=== PATIENT | female | born 1945 | race Caucasian/White ===

== ENCOUNTER 2017-03-01 13:31 | Observation (INO) | payer MEDICARE, BC ==
--- NOTE | ~2017-03-01 | CT4 ---
[facility] A Service of [facility] RADIOLOGY TEXT RESULTS PATIENT: CHAZ ROJAS LOCATION: [facility] 473-01 : 44 UNIT #: [id number] AGE: [address]: Ted Valle MD SEX: F ORDER DR: [id number] [facility] [address] [place], [place] [address] [id number] I MR#: [id number] Acc #: [id number] NAME: CHAZ ROJAS : 1945 SEX: F STUDY DATE/TIME: 03/01/2017 16:28 UNIT: [facility] ROOM: [facility] STUDY DESCRIPTION: CT Abd and Pelv Wo Cont Attending Physician: Donnell Forrest M.D. Ordering Physician: Kit Looney M.D. Primary Care Physician: Jolynn Gaspar Aprn MEDICAL IMAGING REPORT This report is preliminary unless electronic signature is present EXAM CT of the abdomen and pelvis without contrast media, dated 03/01. COMPARISON 02/19 HISTORY Left lower quadrant pain for 1 week. TECHNIQUE Axial imaging of the abdomen and pelvis was performed without contrast media: This CT exam was performed with one or more of the following radiation dose reduction techniques: automatic exposure control, adjustment of mA and/or kV according to patient size, and iterative reconstruction. FINDINGS Scans through the lung bases are normal. Scans through the liver parenchyma show no focal liver abnormalities. Gallbladder is normal. Spleen is unremarkable. The adrenal glands are normal and the pancreas is normal. Both the right and left kidney are normal. There are atherosclerotic calcifications in the aorta with very mild ectasia of abdominal aorta. There is extensive colonic diverticulosis. Appendix appears normal. There is soft tissue edema around the sigmoid colon consistent with sigmoid diverticulitis. No drainable fluid collection is identified. Uterus is to the left midline. There are no adnexal masses or fluid collections. Bony elements are remarkable for lumbar scoliosis and associated secondary degenerative changes. CONCLUSIONS 1. Sigmoid diverticulitis. CT of the abdomen and pelvis is otherwise unremarkable. [facility] A Service of [facility] RADIOLOGY TEXT RESULTS PATIENT: CHAZ ROJAS LOCATION: [facility] 473-01 : 44 UNIT #: [id number] AGE: [address]: Ted Valle MD SEX: F ORDER DR: Dictated by... Mello Bryan M.D. THIS IS AN ELECTRONICALLY VERIFIED REPORT Mello Bryan M.D. at 03/02/2017 10:22 AM ANDRA/josseline TD: 03/02/2017 00:42 JOB #: [id number] MEDICAL IMAGING REPORT Page 1 of 1 COPY
--- NOTE | ~2017-03-01 | DS ---
Unit #: [id number] #: [id number] Patient: CHAZ ROJAS [id number] [address] [address] [id number] I MR#: [id number] NAME: CHAZ ROJAS ROOM: 473 Age: 71 Sex: F Admission Date: 03/01/2017 : 1945 Discharge Date: 03/02/2017 Attending Physician: Ted Valle M.D. Primary Care Physician: Jolynn Gaspar Aprn DISCHARGE SUMMARY REASON FOR ADMISSION Right lower quadrant pain. HISTORY OF PRESENT ILLNESS/HOSPITAL COURSE The patient is a very pleasant 71-year-old female with underlying history of atrial fibrillation, heart failure, hypertension, who was seen at [facility] [place] [place] several days prior to this particular admission secondary to abdominal pain, was diagnosed with acute diverticulitis, given prescriptions for both Flagyl as well as Bactrim. She took both the medications as an outpatient. Unfortunately, her pain worsened in the right lower quadrant. Therefore, she presented to our hospital for further evaluation. Initial evaluation also yielded an elevated potassium level of 5.8, mildly decreased GFR of 41. She was subsequently admitted for the same. She underwent a CT abdomen and pelvis while here in the emergency room. It did reveal sigmoid diverticulitis. Through this particular hospital course, her white count did remain normal. Today at time of discharge, it is currently 8.6, hemoglobin 9.8. Repeat BMP this morning shows a potassium of 5.2 and a GFR of 50. Patient clinically is otherwise doing well. She has no fevers, no elevated white count. Therefore, she is clinically stable for discharge home. She will follow up with her primary care physician next week for a repeat BMP and CBC as well as routine hospital followup. In regard to diverticulitis, she was given appropriate dietary modifications at time of discharge. FINAL DISCHARGE DIAGNOSES 1. Acute diverticulitis. 2. Hyperkalemia. 3. Atrial fibrillation. 4. Prior history of heart failure, I believe diastolic dysfunction. 5. Hypertension. 6. Hyperlipidemia. 7. Chronic obstructive pulmonary disease. DISCHARGE MEDICATIONS Unit #: [id number] #: [id number] Patient: CHAZ ROJAS 1. Tylenol/Benadryl one tablet p.o. nightly p.r.n. 2. Eliquis 5 mg p.o. b.i.d. 3. Prozac 80 mg p.o. daily. 4. Metformin 500 mg p.o. daily. 5. Ativan 1 mg p.o. t.i.d. 6. Metoprolol XL 25 mg p.o. daily. 7. Colace 100 mg p.o. daily. 8. Bumex 1 mg p.o. b.i.d. 9. Vitamin E 400 units p.o. daily. 10. Pravastatin 40 mg p.o. daily. 11. Lisinopril 20 mg p.o. daily. 12. Aspirin 81 mg daily. 13. Omeprazole 20 mg p.o. b.i.d. 14. Cipro 500 mg p.o. b.i.d. x10 days. 15. Flagyl 500 mg p.o. q.8 x10 days. DISCHARGE CONDITION Stable. DISCHARGE DISPOSITION Home. FOLLOWUP Followup PCP within seven days. Dictated by... Yelena Hernandez/ora TD: 03/05/2017 10:32 JOB #: [id number] DISCHARGE SUMMARY Page 1 of 1 X Ted Valle MD X DISCHARGE SUMMARY
--- NOTE | ~2017-03-01 | HP ---
Unit #: [id number] #: [id number] Patient: CHAZ ROJAS [id number] [address] [address] [id number] I MR#: [id number] NAME: CHAZ ROJAS ROOM: 53944 Age: 71 Sex: F Admission Date: 03/01/2017 : 1945 Attending Physician: Donnell Forrest M.D. Primary Care Physician: Jolynn Gaspar Aprn HISTORY AND PHYSICAL CHIEF COMPLAINT Right lower quadrant pain. HISTORY OF PRESENT ILLNESS The patient is a very pleasant 71-year-old female with history of atrial fibrillation, CHF and hypertension, who was seen at [facility] approximately last Sunday with abdominal pain. The patient was diagnosed at that time with acute diverticulitis and provided antibiotics with Flagyl 500 mg q.8 h. as well as Bactrim Double Strength one tab b.i.d. Both were to go for 7 days. The patient stated that she finished both antibiotics and then her pain returned Sunday evening. The patient denies any nausea or vomiting. No fever. Does endorse and episode of chills this morning. States that the pain is mostly located in the right lower quadrant and has been persistent and radiates to her midline. She also noted some bright red blood per rectum with streaks in the toilet this morning but no clots. The patient denies any dizziness or lightheadedness. No chest pain, no shortness of breath. REVIEW OF SYSTEMS Ten out of 14 systems reviewed and negative unless noted above. PAST MEDICAL HISTORY Significant for: 1. Atrial fibrillation. 2. CHF. 3. Hypertension. 4. Hyperlipidemia. 5. COPD. PAST SURGICAL HISTORY Significant for: Right ovarian cyst removal. ALLERGIES No known drug allergies. MEDICATIONS Include: 1. Pravachol. 2. Eliquis. 3. Bumex. 4. Lisinopril. 5. Vitamin D2. 6. Aspirin 81 mg daily. Unit #: [id number] #: [id number] Patient: CHAZ ROJAS 7. Fish oil. 8. Fluoxetine 40 mg daily. 9. Potassium chloride 10 mEq daily. 10. Biotin. 11. Vitamin C. 12. Vitamin E. 13. Ativan 1 mg t.i.d. 14. Toprol XL 25 mg daily. 15. Iron supplement. As well as the completed antibiotics which were Flagyl and Bactrim. SOCIAL HISTORY The patient lives alone. Daughter, however, has accompanied her today. Smokes approximately 4-5 cigarettes per day and is trying to quit. Denies alcohol use. FAMILY HISTORY Noncontributory at this time. PHYSICAL EXAMINATION VITAL SIGNS: Temperature 98.2, heart rate 94, blood pressure 161/70, respiratory rate 20, saturating 97% on room air. GENERAL: The patient appears to be a well-nourished, well-developed, elderly female who is in no acute distress. HEENT: Pupils are equal and reactive to light and accommodation. Extraocular muscles are intact. Oropharynx clear. Mucous membranes appeared to be moist. Sclerae anicteric. NECK: Without lymphadenopathy. LUNGS: Clear to auscultation bilaterally. HEART: Regular rate with an irregular rhythm. No rubs, gallops, or murmurs appreciated. ABDOMEN: Obese. Positive bowel sounds. Soft, some slight tenderness to palpation in the right lower quadrant. No rebound or guarding however was noted. EXTREMITIES: No clubbing or cyanosis. Patient does have trace pedal edema bilaterally. NEUROLOGIC: Nonfocal. DIAGNOSTIC STUDIES LABORATORY: White count today of 10 down from 12.6 last week. Hemoglobin of 11 and platelets 369. Basic panel noted for potassium of 5.8, BUN 38, creatinine 1.3 with a glucose of 127. Comprehensive metabolic panel is within normal limits. Urinalysis was negative. Lipase 51, amylase 33. IMAGING: Repeat CT scan of the abdomen and pelvis today once again showed diverticulitis, reportedly no perforations were noted. ASSESSMENT AND PLAN 1. Diverticulitis. Patient on antibiotics without any improvement. Most likely was only partially treated given that she was placed on Bactrim versus Cipro or Levaquin. At this time, will resume patient's Flagyl and place on ciprofloxacin to treat for a total of 7 days ago. The patient is currently afebrile and her white count is otherwise normal and her symptoms resumed once the Flagyl had finished. 2. Hyperkalemia. Will hold patient's REINA inhibitor as well as her oral potassium supplement. The patient is on both lisinopril and Unit #: [id number] #: [id number] Patient: CHAZ ROJAS potassium supplement and is taking Bumex as well. Would recommend that she discontinue the extra potassium supplement upon discharge and just continue with the REINA inhibitor. I have ordered a repeat potassium for this evening and once again in the morning. Patient has been given insulin as well as one amp of D50 here in the ER. 3. Atrial fibrillation, currently rate controlled. Will continue Eliquis and Toprol XL at home dosages. 4. Hyperlipidemia. Continue statin. 5. Congestive heart failure, question type, unknown at this point. Patient does have an elevated BUN and creatinine. We will recheck this in the morning and hold dose of Bumex for now. 6. Hypertension. Continue home medications. 7. Tobacco abuse. Have ordered a nicotine patch per patient request and she has been counseled on cessation. 8. Chronic obstructive pulmonary disease. No evidence of acute exacerbation at this time, currently stable. CODE STATUS FULL CODE. DISPOSITION I expect disposition in under 48 hours. Patient should be able to go home in the morning pending that her potassium level has returned back to normal. Dictated by Yelena Rodriguez/lina TD: 03/01/2017 20:25 JOB #: [id number] HISTORY AND PHYSICAL Page 1 of 1 X X HISTORY AND PHYSICAL
[2017-03-01 14:28] LABS: BASOPHIL# 0.1 X10e3 (0-0.3); BASOPHIL% 1.4 % (0-2.5); EOSINOPHIL# 0.2 X10e3 (0-0.7); EOSINOPHIL% 2.3 % (0.0-7.0); LYMPHOCYTE# 2.7 X10e3 (1.0-3.5); LYMPHOCYTE% 27.4 % (17.0-45.0); MEAN CELL VOLUME 93.7 FL (83-96); MEAN CORPUSCULAR HEMOGLOBIN 30.3 PG (28-34); MEAN CORPUSCULAR HGB CONC 32.3 g/dL (30-36); MEAN PLATELET VOLUME 8.9 FL (6.5-11.5); MONOCYTE% 9.6 % (3.0-12.0); NEUTROPHIL# 5.9 X10e3 (1.5-7.1); NEUTROPHIL% 59.3 % (40-75); PLATELET COUNT 369 X10e3 (140-420); RED BLOOD COUNT 3.63 X10e (3.90-5.30); RED CELL DISTRIBUTION WIDTH 14.6 % (11.0-15.5)
[2017-03-01 14:37] LABS: DIFF IND NO
[2017-03-01 14:52] LABS: ALBUMIN SERUM 3.8 g/dL (3.5-5.0); BILIRUBIN, DIRECT 0.1 mg/dL (0.0-0.2); BILIRUBIN,INDIRECT 0.3 mg/dL (0.0-0.9); BILIRUBIN,TOTAL 0.4 mg/dL (0.2-2.0); BUN/CREATININE RATIO 29.23; CALCIUM SERUM 9.8 mg/dL (8.4-10.2); CREATININE SERUM 1.3 mg/dL (0.6-1.4); PROTEIN TOTAL SERUM 7.6 g/dL (6.0-8.3)
[2017-03-01 14:54] LABS: POTASSIUM 5.8 mmol/L (3.5-5.1)
[2017-03-01 16:54] LABS: URINE SOURCE CLEAN CATCH
[2017-03-01 17:02] LABS: URINE APPEARANCE CLEAR; URINE BILIRUBIN NEG (NEG); URINE BLOOD NEG (NEG); URINE COLOR YELLOW; URINE GLUCOSE NEG (NEG); URINE KETONE NEG (NEG); URINE LEUKOCYTE ESTERASE NEG (NEG); URINE NITRATE NEG (NEG); URINE PROTEIN NEG (NEG); URINE SPECIFIC GRAVITY 1.015 (1.003-1.035); URINE UROBILINOGEN 0.2 MG/DL (NEG)
[2017-03-01 17:16] LABS: CULTURE INDICATED? NO
[2017-03-01] MEDS ORDERED: PATIENT'S PHARMACY (18:00)
[2017-03-01] MEDS ORDERED: ELIQUIS5 MG PO (18:01)
[2017-03-01] MEDS ORDERED: PRAVASTATIN SOD40 MG PO (18:01)
[2017-03-01] MEDS ORDERED: ATIVAN PO (18:01)
[2017-03-01] MEDS ORDERED: METOPROLOL SUCC25 MG PO (18:01)
[2017-03-01] MEDS ORDERED: BUMEX1 MG PO (18:02)
[2017-03-01] MEDS ORDERED: LISINOPRIL PO (18:02)
[2017-03-01] MEDS ORDERED: CVS PAIN RELIE PO (18:05)
[2017-03-01] MEDS ORDERED: FISH OIL 1,0001 EAC1 PO (18:05)
[2017-03-01] MEDS ORDERED: VITAMIN E400 UNI2 PO (18:05)
[2017-03-01] MEDS ORDERED: HARD NAILS2500 MCG PO (18:06)
[2017-03-01] MEDS ORDERED: VITAMIN C500 MG PO (18:06)
[2017-03-01] MEDS ORDERED: ASPIRIN81 M2 PO (18:06)
[2017-03-01] MEDS ORDERED: DOCUSATE SODIU100 MG PO (18:06)
[2017-03-01] MEDS ORDERED: PRILOSEC PO (18:07)
[2017-03-01] MEDS ORDERED: PROZAC40 MG PO (18:07)
[2017-03-01] MEDS ORDERED: POTASSIUM CHLO10 MEQ PO (18:07)
[2017-03-01] MEDS ORDERED: VITAMIN D250000 UNIT PO (18:09)
[2017-03-01] MEDS ORDERED: FORTAMET500 MG PO (18:09)
[2017-03-02 03:22] LABS: HEMATOCRIT 29.8 % (35.0-45.0); HEMOGLOBIN 9.8 gm/dL (12.0-16.0); MEAN CELL VOLUME 92.6 FL (83-96); MEAN CORPUSCULAR HEMOGLOBIN 30.5 PG (28-34); MEAN PLATELET VOLUME 8.9 FL (6.5-11.5); RED BLOOD COUNT 3.21 X10e (3.90-5.30); RED CELL DISTRIBUTION WIDTH 14.6 % (11.0-15.5); WHITE BLOOD COUNT 8.6 X10e3 (4.0-10.5)
[2017-03-02 03:50] LABS: CREATININE SERUM 1.1 mg/dL (0.6-1.4); GLOM FILT RATE Estimated 50.1 mL/min (>60); POTASSIUM 5.2 mmol/L (3.5-5.1)
[2017-03-02] MEDS ORDERED: FLAGYL PO (14:26)
[2017-03-02] MEDS ORDERED: CIPRO PO (14:29)
== END 2017-03-02 16:18 | disposition home or self-care (01) ==
LOC: CED 13:31 → CEDOF 17:38 → CED 18:22 → C4C 20:48 → CEDOF 20:48 → C4C 03-02 06:30
PROVIDERS: Emergency Medicine; Internal Medicine
DX: E87.5 Hyperkalemia (principal); I48.91 Unspecified atrial fibrillation; I11.0 Hypertensive heart disease with heart failure; I50.9 Heart failure, unspecified; E78.5 Hyperlipidemia, unspecified; J44.9 Chronic obstructive pulmonary disease, unspecified; Z79.899 Other long term (current) drug therapy; Z79.01 Long term (current) use of anticoagulants; F17.210 Nicotine dependence, cigarettes, uncomplicated; Z79.2 Long term (current) use of antibiotics; Z79.82 Long term (current) use of aspirin; Z98.890 Other specified postprocedural states
CPT/HCPCS: 36415; 74176; 80048; 80076; 81003; 82150; 82947; 83690; 84132; 85025; 85027; 99285; G0378

== ENCOUNTER 2017-04-05 10:18 | Emergency (ER) | payer MEDICARE, BC ==
[~2017-04-05] VITALS: Ht 160 cm; Wt 86.2 kg
--- NOTE | ~2017-04-05 | CR20 ---
[facility] A Service of [facility] RADIOLOGY TEXT RESULTS PATIENT: CHAZ ROJAS LOCATION: [facility] : 44 UNIT #: [id number] AGE: [address]: Agueda Mckeon SEX: F ORDER DR: [id number] [facility] [address] [place], [place] [address] [id number] E MR#: [id number] Acc #: [id number] NAME: CHAZ ROJAS : 1945 SEX: F STUDY DATE/TIME: 04/05/2017 UNIT: [facility] ROOM: STUDY DESCRIPTION: CR Ankle Min 3 Views Lt Attending Physician: Agueda Mckeon P.A.-C. Referring Physician: Genny Pendleton M.D. Ordering Physician: Agueda Mckeon P.A.-C. Primary Care Physician: Genyn Pendleton M.D. MEDICAL IMAGING REPORT This report is preliminary unless electronic signature is present EXAM Left ankle 3 views 04/05/2017 1054 hours HISTORY Patient fell yesterday with hyperextension injury. Foot and ankle pain and swelling anteriorly and dorsally on the foot COMPARISON None FINDINGS AP, lateral and oblique views demonstrate diffuse subcutaneous edema. There is no acute fracture or dislocation. There is a large spurring calcification at the plantar surface of the calcaneus that appears chronic. IMPRESSIONS Soft tissue swelling with no fracture or dislocation. Large spur and calcifications at the plantar surface of the calcaneus noted. Dictated by... Ly Rutherford M.D. THIS IS AN ELECTRONICALLY VERIFIED REPORT Ly Rutherford M.D. at 04/05/2017 2:37 PM Leander TD: 04/05/2017 12:56 JOB #: [id number] MEDICAL IMAGING REPORT Page 1 of 1 COPY
--- NOTE | ~2017-04-05 | CR126 ---
[facility] A Service of [facility] RADIOLOGY TEXT RESULTS PATIENT: CHAZ ROJAS LOCATION: [facility] : 44 UNIT #: [id number] AGE: [address]: Agueda Mckeon SEX: F ORDER DR: [id number] [facility] [address] [place], [place] [address] [id number] E MR#: [id number] Acc #: [id number] NAME: CHAZ ROJAS : 1945 SEX: F STUDY DATE/TIME: 04/05/2017 10:54 UNIT: [facility] ROOM: STUDY DESCRIPTION: CR Foot Complete Min 3 View Lt Attending Physician: Agueda Mckeon P.A.-C. Referring Physician: Genny Pendleton M.D. Ordering Physician: Agueda Mckeon P.A.-C. Primary Care Physician: Genny Pendleton M.D. MEDICAL IMAGING REPORT This report is preliminary unless electronic signature is present EXAM Left foot 04/05 INDICATIONS Foot pain and swelling for 1 day after injury during a fall. FINDINGS 3 views of the left foot were obtained. There is a plantar calcaneal spur. No acute fracture or malalignment is seen. Soft tissues are unremarkable. IMPRESSION No acute findings in the foot. There is a plantar calcaneal spur. Dictated by... Kory Lee Jr., M.D. THIS IS AN ELECTRONICALLY VERIFIED REPORT Kory Lee Jr., M.D. at 04/05/2017 4:50 PM VAN/lewis TD: 04/05/2017 13:09 JOB #: [id number] MEDICAL IMAGING REPORT Page 1 of 1 COPY
--- NOTE | ~2017-04-05 | EKG ---
PATIENT: CHAZ ROJAS UNIT #: [id number] Ventricular Rate: 73 BPM Atrial Rate: 73 BPM P-R Interval: 170 ms QRS Duration: 72 ms Q-T Interval: 388 ms QTC Calculation(Bezet): 427 ms P [place]: 64 degrees Calculated R [place]: 3 degrees Calculated T [place]: 52 degrees Diagnosis Line: Normal sinus rhythm Diagnosis Line: Normal ECG Diagnosis Line: No previous ECGs available Diagnosis Line: Confirmed by QUINN KOEHLER MD ([id number]) on 04/07/2017 Diagnosis Line: 8:19:50 AM INTERPRETING MD: RODO LUNA
[~2017-04-05 10:18] MED LIST: ASPIRIN81 M2 PO; ATIVAN PO; BUMEX1 MG PO; CIPRO PO; CVS PAIN RELIE PO; DOCUSATE SODIU100 MG PO; ELIQUIS5 MG PO; FISH OIL 1,0001 EAC1 PO; FLAGYL PO; FORTAMET500 MG PO; HARD NAILS2500 MCG PO; LISINOPRIL PO; METOPROLOL SUCC25 MG PO; PATIENT'S PHARMACY; POTASSIUM CHLO10 MEQ PO; PRAVASTATIN SOD40 MG PO; PRILOSEC PO; PROZAC40 MG PO; VITAMIN C500 MG PO; VITAMIN D250000 UNIT PO; VITAMIN E400 UNI2 PO
[2017-04-05 10:52] LABS: BASOPHIL# 0.1 X10e3 (0-0.3); BASOPHIL% 0.6 % (0-2.5); EOSINOPHIL# 0.3 X10e3 (0-0.7); EOSINOPHIL% 2.6 % (0.0-7.0); HEMATOCRIT 33.8 % (35.0-45.0); LYMPHOCYTE# 1.8 X10e3 (1.0-3.5); LYMPHOCYTE% 17.8 % (17.0-45.0); MEAN CELL VOLUME 95.5 FL (83-96); MEAN CORPUSCULAR HEMOGLOBIN 31.2 PG (28-34); MEAN CORPUSCULAR HGB CONC 32.6 g/dL (30-36); MEAN PLATELET VOLUME 8.5 FL (6.5-11.5); MONOCYTE% 9.4 % (3.0-12.0); NEUTROPHIL# 7.1 X10e3 (1.5-7.1); NEUTROPHIL% 69.6 % (40-75); PLATELET COUNT 236 X10e3 (140-420); RED BLOOD COUNT 3.54 X10e (3.90-5.30); RED CELL DISTRIBUTION WIDTH 14.3 % (11.0-15.5); WHITE BLOOD COUNT 10.2 X10e3 (4.0-10.5)
[2017-04-05 10:54] LABS: DIFF IND NO
[2017-04-05 11:21] LABS: BUN/CREATININE RATIO 23.84; CALCIUM SERUM 9.6 mg/dL (8.4-10.2); CREATININE SERUM 1.3 mg/dL (0.6-1.4); POTASSIUM 5.3 mmol/L (3.5-5.1)
== END 2017-04-05 12:20 | disposition home or self-care (01) ==
LOC: CED 10:18 → CFTX 10:18
PROVIDERS: Physician Assistant
DX: S93.402A Sprain of unspecified ligament of left ankle, initial encounter (principal); S93.602A Unspecified sprain of left foot, initial encounter; E11.65 Type 2 diabetes mellitus with hyperglycemia; I11.0 Hypertensive heart disease with heart failure; I50.9 Heart failure, unspecified; W19.XXXA Unspecified fall, initial encounter; Y92.009 Unspecified place in unspecified non-institutional (private) residence as the place of occurrence of the external cause; Z23 Encounter for immunization
CPT/HCPCS: 29540; 36415; 73610; 73630; 80048; 85025; 90471; 90715; 93005; 99284